=== PATIENT | male | born 1960 | race Caucasian/White ===

== ENCOUNTER 2023-11-14 06:20 | Day surgery (SDC) | payer OTHER ==
[~2023-11-14] VITALS: Ht 188 cm; Wt 115.9 kg
[~2023-11-14 06:20] MED LIST: CYCLOBENZAPRINE10 MG PO; FLOMAX0.4 MG PO; FLUOXETINE HCL20 MG PO; HYDROCODON-ACE1 EA11 PO; HYDROXYZINE HCL25 MG PO; HYZAAR 100-251 EACH; KETOROLAC TROME10 MG PO; MIDAZOLAM HCL 5 MG/5 ML VIAL IV PRN; NEURONTIN300 MG PO; PERCOCET 10-321 EACH PO; PRILOSEC OTC20 MG PO; ROSUVASTATIN CA10 MG PO; TRAZODONE HCL50 MG PO; VITAMIN B122500 MCG PO; fentaNYL citrate 100 MCG/2 ML VIAL IV PRN
[2023-11-14] MEDS ORDERED: MIDAZOLAM HCL 5 MG/5 ML VIAL ONE (06:45)
[2023-11-14] MEDS ORDERED: fentaNYL citrate 100 MCG/2 ML VIAL ONE (06:45)
[2023-11-14] MEDS ORDERED: LIDOCAINE HCL 1% 5 ML SDV INJ ONE (07:00)
[2023-11-14] MEDS ORDERED: LACTATED RINGER'S 1,000 ML IV SCH (07:00)
[2023-11-14] MEDS ORDERED: IBLOOD GLUCOSE TEST STRIP 1 EA TEST VI PRN (07:00)
[2023-11-14 07:01] VITALS: BP 132/79
--- NOTE | 2023-11-14 08:16 | NUR ---
11/14/23 0816 Rowan Fairchild PATIENT ARRIVES IN PACU AWAKE AND RESPONDS TO MY QUESTIONS APPROPRIATELY. HE DENIES PAIN AND NAUSEA.
[2023-11-14 08:31] VITALS: BP 125/78
--- NOTE | 2023-11-14 15:28 | OR ---
[facility] [address], [place] [address] Signed DATE OF OPERATION: 11/14/2023 SURGEON: Olegario Isaac MD PREOPERATIVE DIAGNOSES: 1. History of polyps. 2. History of sigmoid resection for diverticular disease in 1998. POSTOPERATIVE DIAGNOSES: Small polyp right colon (excised). PROCEDURE: Total colonoscopy to cecum with cold morcellation polypectomy x1. ANESTHESIA: Intravenous sedation; fentanyl 100 mcg, Versed 5 mg. INDICATION: This 63-year-old white man is a patient of Dr. Jaxson Caceres and known to me from the past. He underwent sigmoid resection in 1998 by me for diverticular disease. Colonoscopy in the past had shown polyps. He has no family history of colon cancer. No current symptoms of bleeding, diarrhea, or constipation. He is here for screening colonoscopy. FINDINGS: The prep was excellent. Complete colonoscopy was undertaken to the cecum without question. There was no evidence of anastomotic stricture. He had scattered diverticula of the remaining left colon. There was a small polyp of the right colon, which was excised with cold morcellation technique. The remaining colon was normal. DESCRIPTION OF PROCEDURE: The patient was brought to the endoscopy suite and placed in lateral decubitus position, given intravenous sedation to the point of slurred speech and nystagmus. Digital rectal examination was normal. Olympus video colonoscope was passed in the rectum and manipulated throughout the colon and ultimately intubating the cecum. The scope was withdrawn from that point and examination showed a small polyp of the right colon. This was excised with cold morcellation technique. The scope was further withdrawn and diverticula were seen in the remaining left colon. The colorectal anastomosis was widely patent and barely Electronically Signed By: OLEGARIO ISAAC MD 11/14/23 1528 PATIENT NAME: SHIV TIJERINA OPERATIVE REPORT DATE OF : 60 REPORT #: [id number] PHYSICIAN: OLEGARIO ISAAC MD PCP: JAXSON CACERES MD REPORT IS CONFIDENTIAL AND NOT TO BE RELEASED WITHOUT AUTHORIZATION [facility] [address] [facility] [place], [place] [address] Signed detectable. The rectum was normal. The scope was removed. The patient was taken to recovery room in good condition. CONCLUDING DIAGNOSIS: Polyps x1 and diverticula. PLAN: Recommend repeat colonoscopy in 5 years, sooner if symptoms should develop. He will return to the ongoing care of Dr. Jaxson Caceres. MD AVELINA Morgan/MODL /[id number] cc: Jaxson Caceres MD Copies: JAXSON CACERES DMD ~ Electronically Signed By: OLEGARIO ISAAC MD 11/14/23 1528 PATIENT NAME: SHIV TIJERINA OPERATIVE REPORT DATE OF : 60 REPORT #: [id number] PHYSICIAN: OLEGARIO ISAAC MD PCP: JAXSON CACERES MD REPORT IS CONFIDENTIAL AND NOT TO BE RELEASED WITHOUT AUTHORIZATION
--- NOTE | 2023-11-19 07:31 | PATH ---
[facility] [address] [place], [place] [address] Signed SPECIMEN(S): A ASCENDING/RIGHT COLON POLYP SPECIMEN SOURCE: A. ASCENDING/RIGHT COLON POLYP CLINICAL HISTORY: History of polyps, diverticulosis FINAL PATHOLOGIC DIAGNOSIS: Ascending/right colon polyp, biopsies: - Fragments of tubular adenoma and unremarkable colonic mucosa. AMB MICROSCOPIC EXAMINATION: Histologic sections of all submitted blocks are examined by light microscopy. These findings, together with the gross examination, support the pathologic diagnosis. GROSS DESCRIPTION: The specimen, labeled and designated "Rahat, ascending/right colon polyp," is received in formalin and consists of four mckeon soft tissue fragments, ranging from 0.3-0.4 cm. Entirely submitted in (A1). VB (under the direct supervision of a pathologist) The Gross Description was prepared using a voice recognition system. The report was reviewed for accuracy; however, sound-alike word errors, addition and/or deletions may occur. If there is any question about this report, please contact Client Services. ADDITIONAL NOTES: Immunohistochemical and/or in situ hybridization studies if performed in this case included appropriate positive controls that reacted as expected. This test was developed and its performance characteristics determined by [facility]. It has not been cleared or approved by the U.S. Food and Drug Administration. The FDA has determined that such clearance or approval is not necessary. This test is used for clinical purposes. It should not be regarded as investigational or for research. [facility] is certified under the Clinical Laboratory Improvement Amendments of 1988 (CLIA) as qualified to perform high complexity clinical laboratory testing. PATIENT NAME: SHIV TIJERINA PATHOLOGY DATE OF : 60 REPORT #: [id number] PHYSICIAN: HIRO PATHOLOGY PCP: JAXSON CACERES MD REPORT IS CONFIDENTIAL AND NOT TO BE RELEASED WITHOUT AUTHORIZATION [facility] [address] [facility] [place], [place] [address] Signed PERFORMING LABORATORY: Technical component was performed by [facility], [address] [place] [address] (CLIA# [id number]). Professional interpretation was performed by [facility] [address] [id number] Diagnostician: Lindsey Go MD Pathologist Electronically Signed 11/18/2023 Copies: ~ PATIENT NAME: SHIV TIJERINA PATHOLOGY DATE OF : 60 REPORT #: [id number] PHYSICIAN: HIRO TSANG PCP: JAXSON CACERES MD REPORT IS CONFIDENTIAL AND NOT TO BE RELEASED WITHOUT AUTHORIZATION
== END 2023-11-14 08:40 | disposition home or self-care (01) ==
LOC: DS 06:20
PROVIDERS: ATTEND Surgery
PROC: 0DBF8ZX Excision of Right Large Intestine, Via Natural or Artificial Opening Endoscopic, Diagnostic (ICD-10-PCS; principal; 2023-11-14 07:30)
DX: Z12.11 Encounter for screening for malignant neoplasm of colon (principal); D12.2 Benign neoplasm of ascending colon; D12.6 Benign neoplasm of colon, unspecified; K57.30 Diverticulosis of large intestine without perforation or abscess without bleeding; I10 Essential (primary) hypertension; E78.5 Hyperlipidemia, unspecified; Z90.49 Acquired absence of other specified parts of digestive tract; Z79.899 Other long term (current) drug therapy
CPT/HCPCS: 99153; G0500; J2250; J3010; J7121

== ENCOUNTER 2024-06-21 08:15 | Day surgery (SDC) | payer OTHER ==
[2024-06-16 13:49] VITALS: BP 126/79
[~2024-06-21] VITALS: Ht 188 cm; Wt 122.7 kg
[~2024-06-21 08:15] MED LIST changes: +CEFAZOLIN SODIUM 3 GM/30 ML SYR IV SCH; +CEFAZOLIN SODIUM 3 GM/30 ML SYR ONE; +DEXAMETHASONE SOD PHOS 4 MG/ML VIAL ONE; +FAMOTIDINE 20 MG/ 2 ML VIAL ONE; +HYDROmorphone HCL 1 MG/ML SYR IV PRN; +IBLOOD GLUCOSE TEST STRIP 1 EA TEST VI PRN; +IBU400 MG PO; +KETOROLAC TROMETHAMINE 15 MG/ML VIAL IV PRN; +KETOROLAC TROMETHAMINE 30 MG/ML VIAL ONE; +LACTATED RINGER'S 1,000 ML IV ONE; +LACTATED RINGER'S 1,000 ML IV SCH; +LIDOCAINE HCL 1% 5 ML SDV INJ ONE; +METOCLOPRAMIDE HCL 10 MG/2 ML SDV ONE; +MIDAZOLAM HCL 2 MG/2 ML VIAL ONE; -MIDAZOLAM HCL 5 MG/5 ML VIAL IV PRN; +OXYCODONE/APAP 5/325 TAB PO PRN; +PHENAZOPYRIDINE HCL 100 MG TAB PO PRN; -fentaNYL citrate 100 MCG/2 ML VIAL IV PRN; +fentaNYL citrate 100 MCG/2 ML VIAL ONE; +ondansetron HCL 4 MG/2 ML VIAL IV PRN; +ondansetron HCL 4 MG/2 ML VIAL ONE; +propofoL 200 MG/20 ML VIAL ONE
[2024-06-21 08:28] VITALS: BP 130/79
[2024-06-21] MEDS ORDERED: METOCLOPRAMIDE HCL 10 MG/2 ML SDV IV PRN (08:30)
[2024-06-21] MEDS ORDERED: IBLOOD GLUCOSE TEST STRIP 1 EA TEST VI PRN (08:30)
[2024-06-21] MEDS ORDERED: PROCHLORPERAZINE EDISYLATE 10 MG/2 ML VIAL IV PRN (08:30)
[2024-06-21] MEDS ORDERED: NALOXONE HCL 0.4 MG SYR IV PRN (08:30)
[2024-06-21] MEDS ORDERED: droPERidol 5 MG/2 ML VIAL IV PRN (08:30)
[2024-06-21] MEDS ORDERED: MORPHINE SULFATE 10 MG/ML VIAL IV PRN (08:30)
[2024-06-21] MEDS ORDERED: fentaNYL citrate 50 MCG/ML SDV IV PRN (08:30)
[2024-06-21] MEDS ORDERED: ondansetron HCL 4 MG/2 ML VIAL IV PRN (08:30)
--- NOTE | 2024-06-21 08:48 | NUR ---
NICOLLE PT WILL LEAVE AND RETURN.
[2024-06-21] MEDS ORDERED: iopamidoL 30 ML VIAL ONE (09:25)
--- NOTE | 2024-06-21 09:34 | NUR ---
CATHERINE BERG IN TO TALK WITH PT AND DR CUENCA IN.
[2024-06-21] MEDS ORDERED: MORPHINE SULFATE 10 MG/ML VIAL ONE (09:55)
--- NOTE | 2024-06-21 11:41 | NUR ---
06/21/24 1141 Rowan Fairchild EXPIRATORY WHEEZES AUSCULTATED WITH NAKED EAR UPON ARRIVAL TO PACU. OLEGARIO SWIFT CRNA INFORMED AND REPORTS THIS IS BASELINE FOR PATIENT. HE ALSO REPORTS A TREMOR IN HIS VOICE PREOP. PATIENT REPORTS "I GOTTA PEE." PLAN OF CARE IS REVIEWED WITH PATIENT AND HE VERBALIZES UNDERSTANDING. HE CONTINUES TO REPORT "I GOTTA PEE." URINAL IS GIVEN. NO URINE IS NOTED. STENT IS VISIBLE WITH STERI-STRIPS AFFIXED TO THE HEAD OF PENIS.
[2024-06-21 12:14] VITALS: BP 123/77
--- NOTE | 2024-06-21 12:18 | NUR ---
AT BS. PRESCRIPTION GIVEN TO HER. PT COMFORTABLE AND CALL LIGHT GIVEN.
--- NOTE | 2024-06-21 12:25 | NUR ---
EATING CRACKERS AND PUDDING AND JELLO PAIN MEDICINE REQUESTED AND GIVEN.
[2024-06-21 13:01] VITALS: BP 139/85
[2024-06-21] MEDS ORDERED: SEVOFLURANE 250 ML BTL INH ONE (13:05)
--- NOTE | 2024-06-21 13:21 | NUR ---
VOIDED 100MLS RED URINE NO CLOTS
[2024-06-24 11:08] LABS: CALCULI MASS 55 mg (())
== END 2024-06-21 13:10 | disposition home or self-care (01) ==
LOC: DS 08:15 → OPS 08:15 → DS 09:30 → OPS 13:10
PROVIDERS: ATTEND Urology
PROC: 0TC68ZZ Extirpation of Matter from Right Ureter, Via Natural or Artificial Opening Endoscopic (ICD-10-PCS; principal; 2024-06-21 09:30)
PROC: 0T768DZ Dilation of Right Ureter with Intraluminal Device, Via Natural or Artificial Opening Endoscopic (ICD-10-PCS; 2024-06-21 09:30)
DX: N13.2 Hydronephrosis with renal and ureteral calculous obstruction (principal); E11.9 Type 2 diabetes mellitus without complications; I10 Essential (primary) hypertension; F17.210 Nicotine dependence, cigarettes, uncomplicated; Z79.899 Other long term (current) drug therapy
CPT/HCPCS: 00910; 74420; 82365; C1758; C1769; J0690; J1100; J1885; J2250; J2270; J2405; J2704; J2765; J3010; J7121; Q9967